=== PATIENT | female | born 1950 | race Caucasian/White ===

== ENCOUNTER 2021-12-27 10:47 | Outpatient (CLI) | payer MEDICARE | END 2021-12-27 10:48 | disposition home or self-care (01) | LOC: CSHMAMMO 10:47 | PROVIDERS: ATTEND Family Medicine | DX: Z12.31 Encounter for screening mammogram for malignant neoplasm of breast (principal); Z98.890 Other specified postprocedural states | CPT/HCPCS: 77063; 77067 ==

== ENCOUNTER 2023-02-20 13:19 | Outpatient (CLI) | payer MEDICARE | END 2023-02-20 13:20 | disposition home or self-care (01) | LOC: CSHMAMMO 13:19 | PROVIDERS: ATTEND Family Medicine | DX: Z12.31 Encounter for screening mammogram for malignant neoplasm of breast (principal); Z91.89 Other specified personal risk factors, not elsewhere classified | CPT/HCPCS: 77063; 77067 ==